=== PATIENT | female | born 1950 | race Caucasian/White ===

== ENCOUNTER → 2016-10-27 | Outpatient (CLI) | payer MEDICARE, OTHER ==
[~2016-10-27] MED LIST: DENOSUMAB 60 MG/ML 1 ML SYRINGE SQ ONE
[2016-10-27 15:27] VITALS: BP 144/69; PULSE 60; RESP 16; TEMP 97.9
== END ==
LOC: PROCWHC3 14:19
PROVIDERS: ATTEND Physician Assistant Medical
DX: M81.0 Age-related osteoporosis without current pathological fracture (principal)
CPT/HCPCS: 96372; J0897

== ENCOUNTER → 2016-12-29 | Outpatient (CLI) | payer MEDICARE, OTHER ==
--- NOTE | 2016-12-30 08:46 | MM ---
Reason for exam: screening (asymptomatic). Last mammogram was performed 1 year ago. History: Patient is postmenopausal and had first child at age 29. Physical Findings: A clinical breast exam by your physician is recommended on an annual basis and results should be correlated with mammographic findings. MG 3D Screening Mammo W/Cad Bilateral CC and MLO view(s) were taken. Prior study comparison: December 17, 2015, bilateral MG 3d screening mammo w/cad. December 14, 2014, bilateral MG screening mammo w CAD. The breast tissue is heterogeneously dense. This may lower the sensitivity of mammography. There are typically benign calcifications in the left breast. ASSESSMENT: Benign, BI-RAD 2 RECOMMENDATION: Routine screening mammogram of both breasts in 1 year.
== END | disposition home or self-care (01) ==
LOC: RADMAMWWP 07:28
PROVIDERS: ATTEND Family Medicine
DX: Z12.31 Encounter for screening mammogram for malignant neoplasm of breast (principal)
CPT/HCPCS: 77063; G0202

== ENCOUNTER 2017-01-21 08:27 | Day surgery (SDC) | payer MEDICARE, OTHER ==
[2017-01-19 10:41] VITALS: BMI 30.8
[~2017-01-21 08:27] MED LIST changes: -DENOSUMAB 60 MG/ML 1 ML SYRINGE SQ ONE; +LACTATED RINGERS 1,000 ML IV SCH
[2017-01-21 09:02] VITALS: TEMP 98
[2017-01-21] MEDS ORDERED: LIDOCAINE 1% 20 ML VIAL (10MG/ML) FOR IV START INTRADERMA ONE (09:06)
[2017-01-21] MEDS ORDERED: PROPOFOL 10 MG/ML 20 ML VIAL IV ONE (09:28)
--- NOTE | 2017-01-21 09:32 | P.GSHP ---
History of Present Illness H&P Date: 01/21/17 Chief Complaint: history of diverticulitis this is a 58-year-old female referred from [facility]. Patient presents today for colonoscopy. She has a history of diverticulitis. Past Medical History Past Medical History: Hyperlipidemia, Thyroid Disorder Additional Past Medical History / Comment(s): HX OF POLYPS, DIVERTICULI History of Any Multi-Drug Resistant Organisms: None Reported Additional Past Surgical History / Comment(s): D&C, AND COLONOSCOPY Past Anesthesia/Blood Transfusion Reactions: No Reported Reaction Smoking Status: Former smoker - Past Family History Brother(s) Additional Family Medical History / Comment(s): HAD BOWEL RESECTION, UNSURE IF CANCER Medications and Allergies Home Medications Medication Instructions Recorded Confirmed Type Atorvastatin Calcium [Lipitor] 80 mg PO DAILY 10/27/16 01/21/17 History Calcium Carbonate [Calcium] 900 mg PO DAILY 10/27/16 01/21/17 History Levothyroxine Sodium [Synthroid] 50 mcg PO DAILY 10/27/16 01/21/17 History Aspirin [Adult Low Dose Aspirin EC] 81 mg PO DAILY 01/19/17 01/21/17 History Ergocalciferol [Vitamin D2] 50,000 unit PO MO 01/19/17 01/21/17 History Allergies Allergy/AdvReac Type Severity Reaction Status Date / Time No Known Allergies Allergy Verified 01/21/17 09:02 Surgical - Exam Vital Signs Temp Pulse Resp BP Pulse Ox 98.0 F 72 16 145/66 100 01/21/17 09:01 01/21/17 09:01 01/21/17 09:01 01/21/17 09:01 01/21/17 09:01 - General well developed, no distress - Eyes PERRL - ENT normal pinna - Neck no masses - Respiratory normal expansion - Cardiovascular Rhythm: regular - Abdomen Abdomen: soft, non tender Assessment and Plan Assessment: diverticula is. We'll perform colonoscopy.
--- NOTE | 2017-01-21 09:53 | P.OP ---
Date of Procedure: 01/21/17 Preoperative Diagnosis: history of diverticulitis Postoperative Diagnosis: external hemorrhoids Mild diverticular disease Procedure(s) Performed: colonoscopy Anesthesia: MAC Surgeon: Darrion Frazier Pathology: none sent Condition: stable Disposition: PACU Description of Procedure: patient's placed on the endoscopy table in the lateral position. He received IV sedation. Digital rectal exam was performed which revealed a few external hemorrhoids.malities. Flexible colonoscope was then placed patient anus and passed throughout the entire colon. The ileocecal valve was visualized. Cecum , ascending and transverse colon appeared normal. In the descendingand sigmoid colon there was a few scattered diverticula. Scope was then brought back the rectum and this appeared normal. Scope was withdrawn for patient.
[2017-01-21 10:11] VITALS: BP 130/74; PULSE 62; RESP 18
== END 2017-01-21 10:21 | disposition home or self-care (01) ==
LOC: ORWHC2ENDO 08:27
PROVIDERS: ATTEND Surgery
DX: K57.30 Diverticulosis of large intestine without perforation or abscess without bleeding (principal); K64.4 Residual hemorrhoidal skin tags; E78.5 Hyperlipidemia, unspecified; E07.9 Disorder of thyroid, unspecified; Z79.82 Long term (current) use of aspirin; Z79.899 Other long term (current) drug therapy; Z87.891 Personal history of nicotine dependence
CPT/HCPCS: 45378; J2704

== ENCOUNTER → 2017-04-30 | Outpatient (CLI) | payer MEDICARE, OTHER ==
[~2017-04-30] MED LIST changes: +DENOSUMAB 60 MG/ML 1 ML SYRINGE SQ ONE; -LACTATED RINGERS 1,000 ML IV SCH
[2017-04-30 07:35] VITALS: BP 155/78; PULSE 68; RESP 16; TEMP 97.7
== END | disposition home or self-care (01) ==
LOC: PROCWHC3 07:20
PROVIDERS: ATTEND Physician Assistant Medical
DX: M81.0 Age-related osteoporosis without current pathological fracture (principal)
CPT/HCPCS: 96372; J0897

== ENCOUNTER → 2017-12-30 | Outpatient (CLI) | payer MEDICARE, OTHER ==
--- NOTE | 2017-12-31 11:21 | MM ---
Reason for exam: screening (asymptomatic). Last mammogram was performed 1 year ago. History: Patient is postmenopausal and had first child at age 29. Physical Findings: A clinical breast exam by your physician is recommended on an annual basis and results should be correlated with mammographic findings. MG 3D Screening Mammo W/Cad Bilateral CC and MLO view(s) were taken. Prior study comparison: December 29, 2016, bilateral MG 3d screening mammo w/cad. December 17, 2015, bilateral MG 3d screening mammo w/cad. There are scattered fibroglandular densities. There is a central lower right breast mass 3.5-4cm from nipple at anterior depth. This has increased in conspicuity. No suspicious abnormality on the left. ASSESSMENT: Incomplete: need additional imaging evaluation, BI-RAD 0 RECOMMENDATION: Ultrasound of the left breast. (lower inner quadrant) [facility] will attempt to contact patient to return for ultrasound.
== END | disposition home or self-care (01) ==
LOC: RADMAMWWP 09:50
PROVIDERS: ATTEND Family Medicine
DX: Z12.31 Encounter for screening mammogram for malignant neoplasm of breast (principal)
CPT/HCPCS: 77063; 77067

== ENCOUNTER → 2017-12-30 | Outpatient (CLI) | payer MEDICARE, OTHER ==
[2017-12-30 09:45] VITALS: BP 155/86; PULSE 70; RESP 15; TEMP 97.7
== END | disposition home or self-care (01) ==
LOC: PROCWHC3 09:34
PROVIDERS: ATTEND Physician Assistant Medical
DX: M81.0 Age-related osteoporosis without current pathological fracture (principal)
CPT/HCPCS: 96372; J0897

== ENCOUNTER → 2018-01-01 | Outpatient (CLI) | payer MEDICARE, OTHER ==
--- NOTE | 2018-01-01 09:33 | USB ---
Reason for exam: additional evaluation requested from abnormal screening. History: Patient is postmenopausal and had first child at age 29. Physical Findings: Nurse did not find any significant physical abnormalities on exam. US Breast Workup Limited MARTIN Technologist: Naomy Bloom, RT (R)(M) Left limited breast ultrasound including focal area of concern, retroareolar and axilla demonstrates a 4 x 3 x 4mm oval lesion too small to characterize at 6 o'clock. Corresponds to mammographic finding possibly stable from 2016 and therefore short term follow up recommended. This may represent a cyst deep to a dense tissue. Right limited breast ultrasound including focal area of concern, retroareolar and axilla demonstrates a 4 x 2 x 2mm oval, cystic, benign lesion at 6 o'clock. These results were verbally communicated with the patient and result sheet given to the patient on 01/01/18. ASSESSMENT: Probably benign, BI-RAD 3 RECOMMENDATION: Ultrasound of the left breast in 6 months.
== END | disposition home or self-care (01) ==
LOC: RADUSWWP 07:29
PROVIDERS: ATTEND Family Medicine
DX: R92.8 Other abnormal and inconclusive findings on diagnostic imaging of breast (principal)